=== PATIENT | male | born 1970 | race Caucasian/White ===

== ENCOUNTER → 2017-10-31 | Outpatient (REF) | payer BC ==
[2017-11-01 14:17] LABS: PSA TOTAL 2.6 ng/mL (0.0-4.0)
== END ==
LOC: M LABDRAW1 08:20
DX: E29.1 Testicular hypofunction (principal)
CPT/HCPCS: 84154

== ENCOUNTER → 2019-07-01 | Outpatient (REF) | payer BC ==
[~2019-07-01] MED LIST: ANDRGEL TD; ASPI-1 PO; CORE6.25 PO; NICO7DIS4 TD
[2019-07-01 12:20] LABS: ALBUMIN 3.6 GM/DL (3.2-5.2); ALT/SGPT 46 U/L (12-78); BILIRUBIN,TOTAL 0.6 MG/DL (0.2-1.0); BLOOD UREA NITROGEN 18 MG/DL (7-18); CALCIUM LEVEL 8.8 MG/DL (8.5-10.1); CARBON DIOXIDE LEVEL 28 MEQ/L (21-32); CHLORIDE LEVEL 106 MEQ/L (98-107); CHOLESTEROL LEVEL 143 MG/DL (<200); CHOLESTEROL RISK RATIO 3.575 (<5); CREATININE FOR GFR 1.24 MG/DL (0.70-1.30); GLOMERULAR FILTRATION RATE > 60.0 (>60); GLUCOSE, FASTING 101 MG/DL (70-100); HDL CHOLESTEROL 40 MG/DL (>40); LDL CHOLESTEROL 75 MG/DL (<100); NON-HDL-C 103 MG/DL; SODIUM LEVEL 141 MEQ/L (136-145); TRIGLYCERIDES LEVEL 142 MG/DL (<150)
== END ==
LOC: M LABDRAW1 08:32
PROVIDERS: ATTEND Family Medicine
DX: E78.5 Hyperlipidemia, unspecified (principal)

== ENCOUNTER 2019-08-24 16:12 | Emergency (ER) | payer BC ==
[~2019-08-24] VITALS: Ht 188 cm; Wt 131.8 kg
[2019-08-24] MEDS ORDERED: ATOR1TAB19 (16:20)
[2019-08-24] MEDS ORDERED: ANDR2DIS (16:20)
[2019-08-24] MEDS ORDERED: LISI10TA4 (16:20)
[2019-08-24] MEDS ORDERED: B-12100T2 (16:20)
[2019-08-24] MEDS ORDERED: VITA500045 (16:20)
[2019-08-24] MEDS ORDERED: ONDANSETRON 4MG/2ML VIAL (J2405) IV ONE (16:45)
[2019-08-24] MEDS ORDERED: NS 1,000 ML IV ONE (16:45)
[2019-08-24 17:31] LABS: BASO % 0.1 % (0.0-1.0); EOS # 0.1 10^3/uL (0.0-0.5); EOS % 0.6 % (0.0-3.0); HEMOGLOBIN 16.5 g/dl (13.5-17.5); LYMPH # 0.4 10^3/uL (1.5-5.0); LYMPH % 2.8 % (24.0-44.0); MEAN CORPUSCULAR HEMOGLOBIN 29.3 pg (27.0-33.0); MEAN CORPUSCULAR VOLUME 88.8 fl (80.0-96.0); MONO # 0.5 10^3/uL (0.0-0.8); MONO % 3.7 % (0.0-5.0); NEUTROPHILS # 12.3 10^3/uL (1.5-8.5); NEUTROPHILS % 92.1 % (36.0-66.0); PLATELET COUNT, AUTOMATED 210 10^3/uL (150-450); RED BLOOD COUNT 5.63 10^6/uL (4.30-6.10); WHITE BLOOD COUNT 13.4 10^3/uL (4.0-10.0)
[2019-08-24 17:58] LABS: ALBUMIN 4.2 GM/DL (3.2-5.2); ALT/SGPT 53 U/L (12-78); BILIRUBIN,DIRECT 0.3 MG/DL (0.0-0.2); BILIRUBIN,TOTAL 1.1 MG/DL (0.2-1.0); BLOOD UREA NITROGEN 20 MG/DL (7-18); CALCIUM LEVEL 9.9 MG/DL (8.5-10.1); CARBON DIOXIDE LEVEL 27 MEQ/L (21-32); CHLORIDE LEVEL 105 MEQ/L (98-107); CREATININE FOR GFR 1.16 MG/DL (0.70-1.30); GLOMERULAR FILTRATION RATE > 60.0 (>60); GLUCOSE, FASTING 115 MG/DL (70-100); LIPASE 111 U/L (73-393); POTASSIUM SERUM 4.2 MEQ/L (3.5-5.1); SODIUM LEVEL 139 MEQ/L (136-145); TOTAL PROTEIN 8.4 GM/DL (6.4-8.2)
[2019-08-24] MEDS ORDERED: ZOFR4TAB16 PO (18:39)
[2019-08-24 18:59] VITALS: BP 120/86
== END 2019-08-24 19:00 | disposition home or self-care (01) ==
LOC: M ED 16:12
DX: R11.2 Nausea with vomiting, unspecified (principal); F17.200 Nicotine dependence, unspecified, uncomplicated; Z79.51 Long term (current) use of inhaled steroids
CPT/HCPCS: 80048; 80076; 83690; 85025; 93041; 96361; 96374; 99284; J2405